=== PATIENT | female | born 2000 | race Caucasian/White ===

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

== ENCOUNTER 2018-09-25 17:46 | Emergency (ER) | payer BC ==
--- NOTE | 2018-09-25 18:02 | EDPHY ---
H & P Stated Complaint: slipped going downstairs Time Seen by Provider: 09/25/18 17:51 HPI/ROS: CHIEF COMPLAINT: Fell down stairs HISTORY OF PRESENT ILLNESS: Patient is a 17-year-old female who comes to the emergency department complaining of right upper back pain as well as right gluteal pain after falling down the stairs. She states that she was wearing shoes that are clumsy and tripped. She denies assault. She denies intoxication. She does have a history of lumbar stress fractures from dancing that were treated non operatively by wearing a brace 1 year ago. She denies having any lumbar pain currently. She did not hit her head. She denies neck pain or loss of consciousness. Severity: Moderate Modifying factors: None REVIEW OF SYSTEMS: Constitutional: denies: chills, fever, recent illness, recent injury EENTM: denies: blurred vision, double vision, nose congestion Respiratory: denies: cough, shortness of breath Cardiac: denies: chest pain, irregular heart rate, lightheadedness, palpitations Gastrointestinal/Abdominal: denies: abdominal pain, diarrhea, nausea, vomiting, blood streaked stools Genitourinary: denies: dysuria, frequency, hematuria, pain Musculoskeletal: See HPI Skin: denies: lesions, rash, jaundice, bruising Neurological: denies: headache, numbness, paresthesia, tingling, dizziness, weakness Hematologic/Lymphatic: denies: blood clots, easy bleeding, easy bruising Immunologic/allergic: denies: HIV/AIDS, transplant 10 systems reviewed and negative except as noted EXAM: GENERAL: Well-appearing, well-nourished and in no acute distress. HEAD: Atraumatic, normocephalic. EYES: Pupils equal round and reactive to light, extraocular movements intact, sclera anicteric, conjunctiva are normal. ENT: TMs normal, nares patent, oropharynx clear without exudates. Moist mucous membranes. NECK: Normal range of motion, supple without lymphadenopathy or JVD. LUNGS: Breath sounds clear to auscultation bilaterally and equal. No wheezes rales or rhonchi. HEART: Regular rate and rhythm without murmurs, rubs or gallops. ABDOMEN: Soft, nontender, normoactive bowel sounds. No guarding, no rebound. No masses appreciated. BACK: Abrasion to right scapular area, no crepitus or deformity. Pain with deep inspiration. Pain to right gluteus region. No abrasions or contusions. Ambulatory. No midline back pain. No step-off or deformity. EXTREMITIES: Normal range of motion, no pitting or edema. No clubbing or cyanosis. NEUROLOGICAL: Cranial nerves II through XII grossly intact. Normal speech, normal gait. 5/5 strength, normal movement in all extremities, normal sensation , normal reflexes PSYCH: Normal mood, normal affect. SKIN: Warm, dry, normal turgor, no visible rashes or lesions. Source: Patient, EMS - Personal History LMP (Females 10-55): 1-7 Days Ago Tetanus Vaccine Date: < 10 years - Medical/Surgical History Hx Asthma: No Hx Chronic Respiratory Disease: No Hx Diabetes: No Hx Cardiac Disease: No Hx Renal Disease: No Hx Cirrhosis: No Hx Alcoholism: No Hx HIV/AIDS: No Hx Splenectomy or Spleen Trauma: No Other PMH: Pancreatic stones, L3/L4 fx in 2014 - Family History Significant Family History: No pertinent family hx - Social History Smoking Status: Never smoked Alcohol Use: None Constitutional: Initial Vital Signs Temperature (C) 37.2 C 09/25/18 17:52 Heart Rate 87 09/25/18 17:52 Respiratory Rate 16 09/25/18 17:52 Blood Pressure 121/83 H 09/25/18 17:52 O2 Sat (%) 97 09/25/18 17:52 O2 Delivery Mode Room Air Allergies/Adverse Reactions: No Known Allergies Allergy (Unverified 11/09/17 13:29) Home Medications: Medication Instructions Recorded Digestive Enzymes 1 ea PO TIDMEAL 11/09/17 Ethinyl Estradiol/Drospirenone 1 each PO DAILY 11/09/17 [Gianvi 3 mg-0.02 mg Tablet] Acetaminophen [Tylenol 325mg (*)] 650 mg PO Q4HRS PRN tab 11/13/17 Lexapro 09/25/18 Medical Decision Making - Diagnostics Imaging: Discussed imaging studies w/ real estate services administrator Radiologist ED Course/Re-evaluation: Discussed x-ray results patient is reassured. Discussed treatment for rib contusions. Discussed expected course and indications for returning. She feels comfortable going home. Differential Diagnosis: Partial list of the Differential diagnosis considered include but were not limited to; contusion, abrasion, fall and although unlikely based on the history and physical exam, I also considered head injury, neck injury, intoxication, assault. I discussed these differential diagnoses and the plan with the patient as well as the usual and expected course. The patient understands that the diagnosis is provisional and that in medicine we are not always correct and that further workup is often warranted. Usual and customary warnings were given. All of the patient's questions were answered. The patient was instructed to return to the emergency department should the symptoms at all worsen or return, otherwise to followup with the physician as we discussed. Departure - Departure Disposition: Home, Routine, Self-Care Clinical Impression: Contusion, back Qualifiers: Encounter type: initial encounter Laterality: right Qualified Code(s): S20.221A - Contusion of right back wall of thorax, initial encounter Condition: Fair Instructions: Contusion in Adults (ED) Referrals: Patient,NotPresent [Unknown] - As per Instructions FRANCISCO Freedman,. [Clinic] - 2-3 days, if not improved
[2018-09-25 19:17] VITALS: BP 119/78
== END 2018-09-25 19:17 | disposition home or self-care (01) ==
LOC: EDUNIT#
DX: S20.221A Contusion of right back wall of thorax, initial encounter (principal); W10.8XXA Fall (on) (from) other stairs and steps, initial encounter; Z87.312 Personal history of (healed) stress fracture

== ENCOUNTER 2018-11-29 17:10 | Inpatient (IN) | payer BC ==
--- NOTE | 2018-11-29 17:19 | EDPHY ---
General Time Seen by Provider: 11/29/18 17:18 Narrative: CLINICAL IMPRESSION: Epigastric pain, acute pancreatitis ASSESSMENT/PLAN: Patient is a 18-year-old female with a significant history of anxiety and pancreatitis secondary to pancreatic stones presents to the Emergency Department with sudden-onset epigastric pain that occurred this morning at 7:30 a.m.. Patient is afebrile, she is not toxic appearing. Her abdomen is soft with tenderness to palpation in the epigastrium, mild guarding. Her vital signs were reviewed, no findings to suggest sepsis. Patient admitted last year , found to have obstructing pancreatic stones by MRI with MRCP. In light of multiple CTs at the age of 18 will proceed straight to MRI with MRCP. CBC revealed no evidence of leukocytosis. BMP and hepatic panel were grossly normal. Lipase 2000 consistent with acute pancreatitis. negative. MRI with MRCP revealed minimal edema next to the tail with mild narrowing, no evidence of stone. History and physical examination is consistent with acute pancreatitis. The patient was given IV fluids and pain control while in the emergency department, she remained NPO. Patient will be admitted to the hospitalist service for further observation and management, I spoke directly with Dr. Chan who will be the admitting physician. I also consulted Gastroenterology in spoke with Dr. Fitzgerald, he will see the patient in the morning, recommended supportive care at this time. Patient remained hemodynamically stable in the emergency department, her pain controlled. On repeat examination prior to transfer to the floor she is much more comfortable appearing, her abdomen was soft with mild tenderness to palpation in the epigastrium without evidence of a surgical abdomen. DIFFERENTIAL DX: Epigastric pain including but not limited to biliary colic, cholecystitis, peptic ulcer disease, pancreatitis, and gastroenteritis. ED COURSE: 1732: Patient's records reviewed, patient had a CT scan 1 year ago that showed no evidence of acute pancreatitis, no peripancreatic stranding or fluid collection. Findings were suggestive of chronic pancreatitis with numerous punctate coarse calcifications throughout the gland. During this admission the patient required MRI of the abdomen without contrast with MRCP, this revealed acute on chronic pancreatitis with at least 2 obstructing calculi and the pancreatic duct into the tail. 1735: Case discussed with Dr. Caraballo, in light of multiple CTs last of which was negative for acute findings. Dr Caraballo spoke with Dr. Rowley, will proceed with abdomen MRI without contrast with MRCP as this is where they were able to localize obstructing stones last year. 1811: Lipase 1999. Patient currently in MRI. 1823: Discussed case with Dr. Fitzgerald, he recommends supportive care at this time and he will see the patient tomorrow morning. 1852: Discussed case with Dr. Rowley- Minimal edema next to tail with mild narrowing, no evidence of stone. Findings suggestive of acute on chronic pancreatitis. CHIEF COMPLAINT: Epigastric pain HPI: Patient is a 18-year-old female with a history of pancreatitis secondary to pancreatic stones who presents to the Emergency Department with sudden-onset epigastric pain consistent with previous episodes of acute pancreatitis. Patient reports diagnosis of pancreatitis initially when she was in 6th grade, found to be secondary to pancreatic stones. She has had 5-6 episodes of acute pancreatitis several requiring admission to the hospital. She does report endoscopic removal of her pancreatic stones in the past. No history of gallbladder disease or gallstones. Patient reports last episode exactly 1 year ago, she was seen and evaluated here in this emergency department. Patient just returned from [place] today, she had a sudden onset of epigastric pain at 7: 30 a.m. This morning, she is from [place] and has hydrocodone in case of flares. She took a dose this morning with improvement of her symptoms however is starting to have increased pain this afternoon. Patient denies any nausea, vomiting or fevers. She has had no chest pain or shortness of breath. She denies any lower abdominal pain, pelvic pain, vaginal pain or vaginal bleeding. She denies any urinary symptoms to include dysuria, hematuria or increased frequency. She denies any diarrhea, bowel movements have been regular. Patient denies any abdominal surgeries. Last menstrual period was normal, 2 weeks prior. PMH: Pancreatitis secondary to pancreatic stones Pertinent Past Surgical History: Denies Family History: Not contributory Social History: Denies significant alcohol use or cigarette smoking REVIEW OF SYSTEMS: All other systems negative Constitutional: Decreased appetite. No fever, no chills. Eyes: No discharge, vision change ENT: No sore throat, congestion, ear pain. Cardiovascular: No chest pain, no palpitations. Respiratory: No cough, no shortness of breath. Gastrointestinal: Epigastric pain No vomiting, diarrhea. Genitourinary: No hematuria, dysuria, flank pain, pelvic pain. Musculoskeletal: No back pain, joint swelling, joint pain, myalgias. Skin: No rashes, color change. Neurological: No headache, dizziness, weakness. PHYSICAL EXAM: General Appearance: Patient is well-developed, she is uncomfortable appearing however not toxic-appearing. HENT: Normocephalic, atraumatic. Bilateral external ears are normal. Bilateral tympanic membranes are normal with pearly mays reflex. Nares are clear, mucosa is pink. Oropharynx is clear, mucosa is mildly dry, uvula is midline. There is no tonsillar enlargement or exudate. The dentition is normal. Eyes: PERRLA, EOMI intact. Conjunctiva pink, no pallor or injection Neck: Supple, nontender, no lymphadenopathy, no midline pain, FROM, no meningismus. Respiratory: There are no retractions, lungs are clear to auscultation. Cardiac: Regular rate and rhythm, no murmurs or gallops. Gastrointestinal: Abdomen is soft, bowel sounds normal, no masses/hernia. Patient with tenderness to palpation in her epigastrium with mild voluntary guarding, no rigidity. No lower abdominal tenderness to palpation, negative Rovsing's. Neurological: Alert and oriented x 3, CN 2-12 grossly intact, normal gait no ataxia, DTR's intact, normal sensation and strength Skin: Warm, dry, no rashes, no nodules on palpation. Musculoskeletal: Extremities are symmetrical, full range of motion, no tenderness, deformity, swelling, or erythema. Psychiatric: Patient is oriented X 3, there is no agitation. MEDICAL DECISION MAKING: Patient was seen independently. Secondary supervising physician at time of evaluation was Dr. Caraballo, he did not evaluate this patient. Diagnosis: Epigastric pain, acute pancreatitis. New, requires workup Summary: See Assessment and Plan for summary of ED visit Clinical lab tests: ordered / reviewed. Independent visualization of images, tracing, or specimens: Yes. Decision to obtain medical records or history from someone other than the patient: No Review / Summarize previous medical records: Yes Discussed patient with another provider: Yes, Dr. Caraballo Patient Progress: Stable, admit. - History Smoking Status: Never smoked - Objective Vital Signs: Initial Vital Signs Temperature (C) 36.5 C 11/29/18 17:14 Heart Rate 77 11/29/18 17:14 Respiratory Rate 16 11/29/18 17:14 Blood Pressure 115/76 11/29/18 17:14 O2 Sat (%) 100 11/29/18 17:14 O2 Delivery Mode Room Air Allergies/Adverse Reactions: No Known Allergies Allergy (Verified 11/29/18 18:59) Home Medications: Medication Instructions Recorded Escitalopram Oxalate [Lexapro] 15 mg PO DAILY 11/29/18 Ethinyl Estradiol/Drospirenone 1 tab PO DAILY 11/29/18 [[place] 3 mg-0.02 mg Tablet] Fluticasone Nasal [Flonase Nasal 1 sprays NASAL DAILY 11/29/18 [place] (RX)] Hydrocodone/APAP 5/325 [[place] 1 - 2 tab PO Q6H PRN 11/29/18 5/325 (*)] Polymyxin B Sulf/Trimethoprim 2 drop EACHEYE TID 11/29/18 [Polymyxin B-Tmp Eye Drops] Laboratory Results: Laboratory Results 11/29/18 17:45 11/29/18 17:45 11/29/18 11/29/18 11/29/18 17:45 17:45 17:45 WBC 8.49 10^3/uL 10^3/uL (3.80-9.50) RBC 4.38 10^6/uL 10^6/uL (4.18-5.33) Hgb 12.7 g/dL g/dL (12.6-16.3) Hct 37.6 % L % (38.0-47.0) MCV 85.8 fL fL (81.5-99.8) MCH 29.0 pg pg (27.9-34.1) MCHC 33.8 g/dL g/dL (32.4-36.7) RDW 12.5 % % (11.5-15.2) Plt Count 215 10^3/uL 10^3/uL (150-400) MPV 10.0 fL fL (8.7-11.7) Neut % (Auto) 64.9 % % (39.3-74.2) Lymph % (Auto) 25.6 % % (15.0-45.0) [place] % (Auto) 8.2 % % (4.5-13.0) Eos % (Auto) 0.9 % % (0.6-7.6) Baso % (Auto) 0.2 % L % (0.3-1.7) Nucleat RBC Rel Count 0.0 % % (0.0-0.2) Absolute Neuts (auto) 5.50 10^3/uL 10^3/uL (1.70-6.50) Absolute Lymphs (auto) 2.17 10^3/uL 10^3/uL (1.00-3.00) Absolute Monos (auto) 0.70 10^3/uL 10^3/uL (0.30-0.80) Absolute Eos (auto) 0.08 10^3/uL 10^3/uL (0.03-0.40) Absolute Basos (auto) 0.02 10^3/uL 10^3/uL (0.02-0.10) Absolute Nucleated RBC 0.00 10^3/uL 10^3/uL (0-0.01) Immature Gran % 0.2 % % (0.0-1.1) Immature Gran # 0.02 10^3/uL 10^3/uL (0.00-0.10) Sodium 133 mEq/L L mEq/L (135-145) Potassium 3.9 mEq/L mEq/L (3.5-5.2) Chloride 101 mEq/L mEq/L (97-110) Carbon Dioxide 23 mEq/l mEq/l (22-31) Anion Gap 9 mEq/L mEq/L (6-14) BUN 14 mg/dL mg/dL (7-23) Creatinine 0.7 mg/dL mg/dL (0.6-1.0) Estimated GFR > 60 Glucose 89 mg/dL mg/dL (70-100) Calcium 9.3 mg/dL mg/dL (8.5-10.4) Total Bilirubin 0.4 mg/dL mg/dL (0.1-1.4) Conjugated Bilirubin 0.4 mg/dL mg/dL (0.0-0.5) Unconjugated Bilirubin 0.0 mg/dL mg/dL (0.0-1.1) AST 22 IU/L IU/L (14-46) ALT 26 IU/L IU/L (9-52) Alkaline Phosphatase 74 IU/L IU/L (38-126) Total Protein 6.7 g/dL g/dL (6.3-8.2) Albumin 3.7 g/dL g/dL (3.5-5.0) Lipase 1965 IU/L H IU/L (23-300) Beta HCG, Qual NEGATIVE Medications Given: Discontinued Medications Hydromorphone HCl (Dilaudid) 0.5 mg IVP EDNOW ONE Stop: 11/29/18 17:28 Last Admin: 11/29/18 17:48 Dose: 0.5 mg Hydromorphone HCl (Dilaudid) 0.5 mg IVP EDNOW ONE Stop: 11/29/18 18:39 Last Admin: 11/29/18 18:57 Dose: 0.5 mg Sodium Chloride (Ns) 1,000 mls @ 0 mls/hr IV ONCE ONE PRN Reason: Wide Open Stop: 11/29/18 17:28 Last Admin: 11/29/18 17:47 Dose: 1,000 mls Departure - Departure Disposition: [facility] Inpatient Acute Clinical Impression: Acute pancreatitis Qualifiers: Pancreatitis type: other Acute pancreatitis complication: unspecified Qualified Code(s): K85.80 - Other acute pancreatitis without necrosis or infection
[2018-11-29] MEDS ORDERED: NS 1,000 ML IV ONE (17:27)
[2018-11-29] MEDS: HYDROmorphONE/DILAUDID 2 MG/ML INJ IVP ONE ×2 (17:48→22:06)
[2018-11-29 17:55] LABS: PLATELET COUNT 215 10^3/uL (150-400)
[2018-11-29] MEDS ORDERED: HYDROmorphONE/DILAUDID 2 MG/ML INJ IVP ONE (18:38)
[2018-11-29] MEDS ORDERED: ONDANSETRON 4 MG/2 ML VIAL IVP PRN (18:58)
[2018-11-29] MEDS ORDERED: ACETAMINOPHEN 325 MG TAB PO PRN (18:58)
[2018-11-29] MEDS ORDERED: oxyCODONE IR 5 MG TAB PO PRN (18:58)
[2018-11-29] MEDS ORDERED: NS 1,000 ML IV SCH (19:00)
--- NOTE | 2018-11-29 19:08 | PDGENHP ---
History and Physical - Chief Complaint Abdominal pain - History of Present Illness Killian Ordonez is a 18-year-old female with past medical history of multiple episodes of pancreatitis along with depression and a recent pink eye infection who presented the emergency room with acute onset of abdominal pain. She said she was in [place] for the last 5 days and during that time was drinking he fairly heavy amounts of alcohol. She was fine until today when she had acute onset of abdominal pain. She has not had any nausea or vomiting. She has not had any diarrhea or bloody stools. She denies any dysuria or hematuria. The pain is sharp pain lobe located in her mid epigastric area radiating to her back. Pain is very similar previous episodes of pancreatitis that she has had. She has an extensive history of pancreatitis with a stent placed at age 2 and then again a few years later. She was admitted here in October of 2017 for another episode of pancreatitis at which time an MRCP did show some stones. However the recommendation was that she be discharged and follow up for an ERCP after the pancreas and had an opportunity to calm down. She then states she had another episode of pancreatitis sometime after that while in [place]. She denied any other chest pain, cough or other symptoms. History Information - Allergies/Home Medication List Allergies/Adverse Reactions: No Known Allergies Allergy (Verified 11/29/18 18:59) Home Medications: Escitalopram Oxalate [Lexapro] 15 mg PO DAILY 11/29/18 [Last Taken 11/29/18 09: 00] Ethinyl Estradiol/Drospirenone [Loryna 3 mg-0.02 mg Tablet] 1 tab PO DAILY 11/29 [Last Taken 11/29/18 09:00] Fluticasone Nasal [Flonase Nasal [place] (RX)] 1 sprays NASAL DAILY 11/29/18 [ Last Taken 11/29/18 09:00] Hydrocodone/APAP 5/325 [[place] 5/325 (*)] 1 - 2 tab PO Q6H PRN 11/29/18 [Last Taken 11/29/18 09:00] Polymyxin B Sulf/Trimethoprim [Polymyxin B-Tmp Eye Drops] 2 drop EACHEYE TID [Last Taken 11/29/18 09:00] I have personally reviewed and updated: family history, medical history, social history, surgical history - Past Medical History Additional medical history: Pancreatitis, depression, pink eye - Surgical History Reports: no pertinent surgical hx - Family History Positive for: non-pertinent - Social History Smoking Status: Never smoked Alcohol Use: Other (Drink fairly heavily over the last week but usually is an occasional drinker.) Review of Systems Review of Systems: ROS: 10pt was reviewed & negative except for what was stated in HPI & below Physical Exam Physical Exam: Temp Pulse Resp BP Pulse Ox 36.5 C 77 16 115/76 100 11/29/18 17:14 11/29/18 17:14 11/29/18 17:14 11/29/18 17:14 11/29/18 17:14 Constitutional: no apparent distress, appears nourished, not in pain Eyes: PERRL, anicteric sclera, EOMI Ears, Nose, Mouth, Throat: moist mucous membranes, hearing normal, ears appear normal, no oral mucosal ulcers Cardiovascular: regular rate and rhythym, no murmur, rub, or gallop, No edema Respiratory: no respiratory distress, no rales or rhonchi, clear to auscultation Gastrointestinal: normoactive bowel sounds, tenderness Genitourinary: no bladder fullness, no bladder tenderness Skin: warm, normal color, no rashes or abrasions, no fluctuance, no induration, No mottled Musculoskeletal: full muscle strength, no muscle tenderness, normal joint ROM, no joint effusions Psychiatric: interacting appropriately, not anxious, not encephalopathic, thought process linear Lymph, Heme, Immunologic: no cervical LAD, no supraclavicular LAD Lab Data & Imaging Review 11/29/18 17:45 11/29/18 17:45 WBC 8.49 10^3/uL (3.80-9.50) 11/29/18 17:45 RBC 4.38 10^6/uL (4.18-5.33) 11/29/18 17:45 Hgb 12.7 g/dL (12.6-16.3) 11/29/18 17:45 Hct 37.6 % (38.0-47.0) L 11/29/18 17:45 MCV 85.8 fL (81.5-99.8) 11/29/18 17:45 MCH 29.0 pg (27.9-34.1) 11/29/18 17:45 MCHC 33.8 g/dL (32.4-36.7) 11/29/18 17:45 RDW 12.5 % (11.5-15.2) 11/29/18 17:45 Plt Count 215 10^3/uL (150-400) 11/29/18 17:45 MPV 10.0 fL (8.7-11.7) 11/29/18 17:45 Neut % (Auto) 64.9 % (39.3-74.2) 11/29/18 17:45 Lymph % (Auto) 25.6 % (15.0-45.0) 11/29/18 17:45 Harper % (Auto) 8.2 % (4.5-13.0) 11/29/18 17:45 Eos % (Auto) 0.9 % (0.6-7.6) 11/29/18 17:45 Baso % (Auto) 0.2 % (0.3-1.7) L 11/29/18 17:45 Nucleat RBC Rel Count 0.0 % (0.0-0.2) 11/29/18 17:45 Absolute Neuts (auto) 5.50 10^3/uL (1.70-6.50) 11/29/18 17:45 Absolute Lymphs (auto) 2.17 10^3/uL (1.00-3.00) 11/29/18 17:45 Absolute Monos (auto) 0.70 10^3/uL (0.30-0.80) 11/29/18 17:45 Absolute Eos (auto) 0.08 10^3/uL (0.03-0.40) 11/29/18 17:45 Absolute Basos (auto) 0.02 10^3/uL (0.02-0.10) 11/29/18 17:45 Absolute Nucleated RBC 0.00 10^3/uL (0-0.01) 11/29/18 17:45 Immature Gran % 0.2 % (0.0-1.1) 11/29/18 17:45 Immature Gran # 0.02 10^3/uL (0.00-0.10) 11/29/18 17:45 Sodium 133 mEq/L (135-145) L 11/29/18 17:45 Potassium 3.9 mEq/L (3.5-5.2) 11/29/18 17:45 Chloride 101 mEq/L (97-110) 11/29/18 17:45 Carbon Dioxide 23 mEq/l (22-31) 11/29/18 17:45 Anion Gap 9 mEq/L (6-14) 11/29/18 17:45 BUN 14 mg/dL (7-23) 11/29/18 17:45 Creatinine 0.7 mg/dL (0.6-1.0) 11/29/18 17:45 Estimated GFR > 60 11/29/18 17:45 Glucose 89 mg/dL (70-100) 11/29/18 17:45 Calcium 9.3 mg/dL (8.5-10.4) 11/29/18 17:45 Total Bilirubin 0.4 mg/dL (0.1-1.4) 11/29/18 17:45 Conjugated Bilirubin 0.4 mg/dL (0.0-0.5) 11/29/18 17:45 Unconjugated Bilirubin 0.0 mg/dL (0.0-1.1) 11/29/18 17:45 AST 22 IU/L (14-46) 11/29/18 17:45 ALT 26 IU/L (9-52) 11/29/18 17:45 Alkaline Phosphatase 74 IU/L (38-126) 11/29/18 17:45 Total Protein 6.7 g/dL (6.3-8.2) 11/29/18 17:45 Albumin 3.7 g/dL (3.5-5.0) 11/29/18 17:45 Lipase 1965 IU/L (23-300) H 11/29/18 17:45 Beta HCG, Qual NEGATIVE 11/29/18 17:45 Assessment & Plan Assessment: 18-year-old female with past medical history of multiple episodes of acute pancreatitis admitted with acute pancreatitis. Acute pancreatitis (Acute)-lipase elevated to a most 2000. She has tenderness in her epigastrium consistent with pancreatitis and has had multiple episodes of acute pancreatitis since childhood. This particular episode may have been precipitated by alcohol consumption given her history of heavy alcohol drinking in [place]. I discussed the case with the emergency room physician and we have decided to proceed with MRCP. -aggressive fluid resuscitation with LR -pain control -Dr. Fitzgerald who saw the patient on her last admission here has been consulted -MRCP Hyponatremia- likely due to poor oral intake. Will repeat in the morning [place] [facility]- on ophthalmic antibiotic drops. Continue Depression- restart antidepressive medications as able to take p.o. Prophylaxis-SCDs, hold heparin in case of ERCP Fluids-LR at 150 cc an hour Electrolytes-within normal limits Nutrition-clears Cor-full Dispo-inpatient for acute pancreatitis
[2018-11-29] MEDS: LR 1,000 ML IV SCH (20:22)
[2018-11-29] MEDS ORDERED: HYDROCODONE/APAP 5/325 TAB PO PRN (21:29)
[2018-11-29] MEDS ORDERED: ESCITALOPRAM OXALATE 10 MG TAB PO SCH (21:30)
[2018-11-29] MEDS ORDERED: POLYMYXIN B SULFATE/TMP 10 ML OPHT.BTL EACHEYE SCH (22:00)
[2018-11-29] MEDS: ESCITALOPRAM OXALATE 10 MG TAB PO SCH (23:20)
[2018-11-30] MEDS: HYDROmorphONE/DILAUDID 1 MG/ML INJ IVP PRN ×3 (00:26→08:56)
[2018-11-30] MEDS: LR 1,000 ML IV SCH ×3 (03:12→17:20)
[2018-11-30] MEDS: LORazepam 2 MG/ML INJ IVP PRN ×2 (03:16→10:52)
[2018-11-30 05:11] LABS: PLATELET COUNT 165 10^3/uL (150-400)
[2018-11-30] MEDS ORDERED: NALOXONE HCL 0.4 MG/ML INJ IVP PRN (12:11)
[2018-11-30] MEDS: HYDROmorphONE/DILAUDID 6 MG/30 ML PCA IV PRN ×2 (12:45→22:49)
--- NOTE | 2018-11-30 13:26 | HOSPPROG ---
Hospitalist Progress Note Assessment/Plan: 18-year-old female admitted with recurrent pancreatitis. Acute on chronic pancreatitis - lipase 2K-->800. She has had multiple episodes of pancreatitis since childhood. Trigger this episode may have been etoh. MRCP shows changes c/w acute on chronic pancreatits, no obvious stone. She has ongoing pain, not adequately controlled by q3h dilaudid. 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 has had clear liquid diet ordered, but hasn' t taken any po due to pain. No N/V. No diarrhea. No fevers. Objective: Vital Signs Temp Pulse Resp BP Pulse Ox 37.1 C 89 14 110/65 94 11/30/18 12:00 11/30/18 12:00 11/30/18 12:00 11/30/18 12:00 11/30/18 12:00 Laboratory Results 11/30/18 04:54 11/30/18 04:54 11/29/18 11/30/18 12/01/18 05:59 05:59 05:59 Intake Total 1000 Balance 1000 - Physical Exam Constitutional: no apparent distress Eyes: PERRL Ears, Nose, Mouth, Throat: moist mucous membranes Cardiovascular: regular rate and rhythym Respiratory: no respiratory distress, clear to auscultation Gastrointestinal: normoactive bowel sounds, other (soft, nd, +epigastric TTP with voluntary guarding, no rigidity or peritoneal signs, +BS) Skin: warm Musculoskeletal: full muscle strength Neurologic: AAOx3 Psychiatric: interacting appropriately ICD10 Worksheet Patient Problems: Problems Problem Status Onset Acute pancreatitis Acute Contusion, back Acute Pancreatitis Acute
[2018-11-30] MEDS: ENOXAPARIN 40 MG/0.4 ML SYR SC SCH (13:42)
[2018-11-30] MEDS: POLYMYXIN B SULFATE/TMP 10 ML OPHT.BTL EACHEYE SCH ×2 (15:26→20:10)
--- NOTE | 2018-11-30 15:27 | ASMTCMCOM ---
CM Note CM Note Notes: Spoke with pt in the room. Pt admitted for ETOH induced pancreatitis. Pt reports she was in [place] and did not drink enough water while drinking alcohol and consuming a lot of fatty foods. Pt states she does not drink a lot but when she does drink more than usual she gets pancreatitis. CM spoke with pt about what is considered reasonable intake of ETOH per CAGE screen. Pt denies need for emotional support resources around ETOH intake stating that her body is communicating very clearly with her through the pancreatic pain. Pt states mother is on her way to [place] and will be supportive until pt is able to care for herself independently. No CM needs noted at this time. D/C Plan: Independent with support from Mom. Date Signed: 11/30/2018 03:26 PM Electronically Signed By:Idalmis Alvarez
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
--- NOTE | 2018-11-30 18:30 | PDMN ---
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 NPO, gi consult pend.
[2018-11-30] MEDS: FLUTICASONE NASAL 120 SPRAYS/16 GM MDI NS SCH (18:36)
[2018-11-30] MEDS: ESCITALOPRAM OXALATE 10 MG TAB PO SCH (20:09)
[2018-12-01] MEDS: LR 1,000 ML IV SCH ×4 (00:20→19:01)
[2018-12-01] MEDS: HYDROmorphONE/DILAUDID 6 MG/30 ML PCA IV PRN ×3 (05:06→23:06)
--- NOTE | 2018-12-01 09:10 | SOAPPROG ---
SOAP Progress Note Assessment/Plan: Assessment: Chronic on acute pancreatitis. Most likely exacerbated by recent ETOH and dehydration. No endoscopic interventions required. Still with pain this morning. Improved somewhat. Plan: 1. IV fluids 2. Analgesia 3. NPO until pain improved 4. When pain improved start on clear liquids and advance as tolerated 5. After discharge would recommend she follow up with her regular GI in [place]. She can follow up with us as an outpatient as needed. Will sign off. Please call with further questions. 12/01/18 09:06 Subjective: CC: Pancreatitis Still with pain this morning. Objective: Vital Signs Temp Pulse Resp BP Pulse Ox 37.2 C 77 12 99/49 L 97 12/01/18 08:00 12/01/18 08:00 12/01/18 08:00 12/01/18 08:00 12/01/18 08:00 Generic Name Dose Route Start Last Admin Trade Name Freq PRN Reason Stop Dose Admin Acetaminophen 650 mg 11/29/18 18:58 Tylenol PO 05/28/19 18:57 Q4HRS PRN Pain, Mild/Fever, Can Take PO Enoxaparin Sodium 40 mg 11/30/18 13:45 11/30/18 13:42 Lovenox SC 05/29/19 13:44 40 mg DAILY MACIE Administration Escitalopram Oxalate 15 mg 11/29/18 23:15 11/30/18 20:09 Lexapro PO 05/28/19 23:14 15 mg HS MACIE Administration Fluticasone Propionate 1 sprays 11/30/18 18:15 11/30/18 18:36 Flonase Nasal [place] NS 05/29/19 18:14 1 spray DAILY MACIE Administration Hydromorphone HCl 0 mg 11/30/18 12:11 12/01/18 05:06 Dilaudid Sports Team Manager IV 12/10/18 12:10 6 mg PRN PRN Administration Pain, Severe Unable to Take PO Protocol Lactated Ringer's 1,000 mls @ 150 mls/hr 11/29/18 19:30 12/01/18 06:56 Lr IV 05/28/19 19:29 1,000 mls CONT MACIE Administration Lorazepam 0.5 - 1 mg 11/29/18 23:32 11/30/18 10:52 Ativan Injection IVP 05/28/19 23:31 0.5 mg Q6HRS PRN Administration Spasms Miscellaneous Medication 1 tab 11/30/18 13:30 11/30/18 14:44 Ethinyl Estradiol/Drospirenone [Loryna 3 Mg-0.02 Mg Tablet] PO 05/29/19 13: 29 1 tab DAILY MACIE Administration Naloxone HCl 0 mg 11/30/18 12:11 Narcan IVP 05/29/19 12:10 PRN PRN Respiratory depression Protocol Ondansetron HCl 4 mg 11/29/18 18:58 Zofran IVP 05/28/19 18:57 Q4HRS PRN Nausea/Vomiting, Can't Take PO Ondansetron HCl 4 mg 11/29/18 18:58 Zofran Odt PO 05/28/19 18:57 Q4HRS PRN Nausea/Vomiting, Use 1st Discontinued Medications Generic Name Dose Route Start Last Admin Trade Name Freq PRN Reason Stop Dose Admin Hydrocodone Bitart/Acetaminophen 2 tab 11/29/18 21:29 [place] 5/325 PO 12/09/18 21:28 Q4HRS PRN Pain, Moderate Able to Take PO Escitalopram Oxalate 15 mg 11/29/18 21:30 11/29/18 23:24 Lexapro PO 05/28/19 21:29 Not Given DAILY MACIE Hydromorphone HCl 0.5 mg 11/29/18 17:27 11/29/18 22:06 Dilaudid IVP 11/29/18 17:28 Not Given EDNOW ONE Hydromorphone HCl 0.5 mg 11/29/18 18:38 11/29/18 18:57 Dilaudid IVP 11/29/18 18:39 0.5 mg EDNOW ONE Administration Hydromorphone HCl 0.2 - 0.4 mg 11/29/18 23:31 11/30/18 08:56 Dilaudid IVP 12/09/18 23:30 0.4 mg Q3HRS PRN Administration Pain, Severe Sodium Chloride 1,000 mls @ 0 mls/hr 11/29/18 17:27 11/29/18 17:47 Ns IV 11/29/18 17:28 1,000 mls ONCE ONE Administration Wide Open Sodium Chloride 1,000 mls @ 150 mls/hr 11/29/18 19:00 Ns IV 05/28/19 18:59 CONT MACIE Morphine Sulfate 2 - 4 mg 11/29/18 18:58 11/29/18 23:03 Morphine IVP 12/09/18 18:57 2 mg Q2H PRN Administration Pain, Severe Unable to Take PO Oxycodone HCl 5 - 10 mg 11/29/18 18:58 Oxycodone Ir PO 12/09/18 18:57 Q3HRS PRN Pain, Severe Able to Take PO Polymyxin/Trimethoprim Sulfate 2 drops 11/29/18 22:00 11/29/18 23:07 Polytrim Opht Drops EACHEYE 11/29/18 22:01 Not Given TID MACIE Polymyxin/Trimethoprim Sulfate 2 drops 11/30/18 16:00 11/30/18 20:10 Polytrim Opht Drops EACHEYE 11/30/18 22:01 2 drops TID MACIE Administration Physical Exam - Physical Exam General Appearance: alert, no apparent distress Respiratory: lungs clear, normal breath sounds Cardiac/Chest: regular rate, rhythm Abdomen: soft, other (slight tenderness on palpation) Skin: normal color, warm/dry Neuro/Psych: no motor/sensory deficits, alert, normal mood/affect, oriented x 3 ICD10 Worksheet Patient Problems: Problems Problem Status Onset Acute pancreatitis Acute Contusion, back Acute Pancreatitis Acute
[2018-12-01] MEDS: FLUTICASONE NASAL 120 SPRAYS/16 GM MDI NS SCH (10:31)
[2018-12-01] MEDS: ENOXAPARIN 40 MG/0.4 ML SYR SC SCH (10:31)
--- NOTE | 2018-12-01 14:06 | HOSPPROG ---
Hospitalist Progress Note Assessment/Plan: 18-year-old female admitted with recurrent pancreatitis. First encounter, chart reviewed. 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 No other issues. Objective: Vital Signs Temp Pulse Resp BP Pulse Ox 37.2 C 78 12 99/50 L 91 L 12/01/18 11:53 12/01/18 11:53 12/01/18 11:53 12/01/18 11:53 12/01/18 11:53 - Physical Exam Constitutional: appears nourished, uncomfortable, No obese Eyes: PERRL, anicteric sclera, EOMI Ears, Nose, Mouth, Throat: moist mucous membranes, hearing normal, ears appear normal Cardiovascular: regular rate and rhythym, No JVD, No edema Respiratory: no respiratory distress, no rales or rhonchi, reduced air movement Gastrointestinal: normoactive bowel sounds, tenderness, No ascites Skin: warm, normal color, No mottled Musculoskeletal: normal joint ROM, no joint effusions, generalized weakness Neurologic: AAOx3 Psychiatric: interacting appropriately, not anxious, not encephalopathic, thought process linear ICD10 Worksheet Patient Problems: Problems Problem Status Onset Pancreatitis Acute Contusion, back Acute Acute pancreatitis Acute
[2018-12-01] MEDS: ESCITALOPRAM OXALATE 10 MG TAB PO SCH (20:26)
[2018-12-01] MEDS: ONDANSETRON DISINTEGRATING 4 MG TAB PO PRN (20:27)
[2018-12-02] MEDS: LR 1,000 ML IV SCH ×4 (01:29→21:50)
[2018-12-02] MEDS: HYDROmorphONE/DILAUDID 6 MG/30 ML PCA IV PRN ×2 (07:57→18:03)
[2018-12-02] MEDS: ENOXAPARIN 40 MG/0.4 ML SYR SC SCH (09:53)
[2018-12-02] MEDS: FLUTICASONE NASAL 120 SPRAYS/16 GM MDI NS SCH (09:54)
--- NOTE | 2018-12-02 11:20 | HOSPPROG ---
Hospitalist Progress Note Assessment/Plan: 18-year-old female admitted with recurrent pancreatitis. #Acute on chronic pancreatitis - lipase 2K-->130 -better today -She has had multiple episodes of pancreatitis since childhood -trigger this episode may have been etoh -MRCP shows changes c/w acute on chronic pancreatits, no obvious stone -She has ongoing pain -cont IVF's, advacne to clears -dilaudid HEAD OF MATHEMATICS for pain control -appreciate GI consult, D/W Dr Fitzgerald #Hyponatremia -resolved with IVF's #[place] eye -improved #Depression - cont home meds #DVT PPLX - Lovenox Cor-full Dispo-inpatient for acute pancreatitis cont advance to clears likely DC tomorrow Subjective: No more pain. Not better yet. No other issues. Objective: Vital Signs Temp Pulse Resp BP Pulse Ox 36.9 C 73 16 91/45 L 97 12/02/18 08:00 12/02/18 08:00 12/02/18 08:00 12/02/18 08:00 12/02/18 08:00 12/01/18 12/02/18 12/03/18 05:59 05:59 05:59 Intake Total 5 2019 Balance 1672019 - Physical Exam Constitutional: no apparent distress, appears nourished Eyes: PERRL, anicteric sclera Ears, Nose, Mouth, Throat: moist mucous membranes, hearing normal Cardiovascular: No JVD, No edema Respiratory: no respiratory distress, reduced air movement Gastrointestinal: tenderness, No ascites Skin: warm, normal color Musculoskeletal: no joint effusions, generalized weakness Neurologic: AAOx3 Psychiatric: interacting appropriately, not anxious, not encephalopathic ICD10 Worksheet Patient Problems: Problems Problem Status Onset Pancreatitis Acute Contusion, back Acute Acute pancreatitis Acute
[2018-12-02] MEDS: ESCITALOPRAM OXALATE 10 MG TAB PO SCH (21:01)
[2018-12-03] MEDS: ONDANSETRON DISINTEGRATING 4 MG TAB PO PRN (02:57)
[2018-12-03] MEDS: LR 1,000 ML IV SCH ×2 (04:16→10:02)
[2018-12-03] MEDS: ENOXAPARIN 40 MG/0.4 ML SYR SC SCH (09:57)
[2018-12-03] MEDS: FLUTICASONE NASAL 120 SPRAYS/16 GM MDI NS SCH (09:57)
[2018-12-03] MEDS: HYDROmorphONE/DILAUDID 6 MG/30 ML PCA IV PRN (10:38)
--- NOTE | 2018-12-03 13:14 | HOSPPROG ---
Hospitalist Progress Note Assessment/Plan: 18-year-old female admitted with recurrent pancreatitis. First encounter, chart reviewed. #Acute on chronic pancreatitis -lipase is much improved -she has had multiple episodes of pancreatitis since childhood, lives in the [place], [place] area and has a GI specialist there -alcohol may have caused the above -MRCP shows acute on chronic pancreatitis -had a pain episode last night and she is fearful about stopping the Dilaudid MEDICAL COST CONSULTANT #alcohol use -encouraged her to abstain from all alcohol with her hx of pancreatitis #Hyponatremia -resolved with IVF's #[place] eye -resolved #hypotension -asymptomatic #Depression - cont home meds #plan: cut back a bit on IV fluids, cont MEDICAL COST CONSULTANT through today. Told her to not eat even clears if pain occurs after eating. Patient's mom, Hramony, at the bedside. Subjective: Navid said pain was so severe during the night, epigastric area and wrapped around. Earlier today, pain was around 5. With use of MEDICAL COST CONSULTANT, pain is very well managed. Objective: Vital Signs Temp Pulse Resp BP Pulse Ox 37.2 C 63 12 96/60 L 97 12/03/18 12:07 12/03/18 12:07 12/03/18 12:07 12/03/18 12:07 12/03/18 12:07 12/02/18 12/03/18 12/04/18 05:59 05:59 05:59 Intake Total 1675 3762 Balance 1675 3762 - Physical Exam Constitutional: uncomfortable Eyes: PERRL Ears, Nose, Mouth, Throat: hearing normal Cardiovascular: regular rate and rhythym Respiratory: no respiratory distress Gastrointestinal: normoactive bowel sounds, tenderness (slight in epigastric area w palp) Skin: warm Musculoskeletal: full muscle strength Neurologic: AAOx3 Psychiatric: interacting appropriately ICD10 Worksheet Patient Problems: Problems Problem Status Onset Acute pancreatitis Acute Contusion, back Acute Pancreatitis Acute
--- NOTE | 2018-12-03 15:56 | ASMTCMCOM ---
CM Note CM Note Notes: Reviewed chart, pt admitted with etoh induced pancreatitis. She is not interested in etoh resources, will dc home with support of mother when medically stable. CM available to provide any assistance should pt change her mind. DC Plan: Independent Date Signed: 12/03/2018 03:55 PM Electronically Signed By:Shari Moe RN
[2018-12-03] MEDS: ESCITALOPRAM OXALATE 10 MG TAB PO SCH (20:08)
[2018-12-04] MEDS: ONDANSETRON DISINTEGRATING 4 MG TAB PO PRN (04:41)
[2018-12-04] MEDS: LR 1,000 ML IV SCH (04:42)
[2018-12-04] MEDS: ENOXAPARIN 40 MG/0.4 ML SYR SC SCH (10:19)
[2018-12-04] MEDS: FLUTICASONE NASAL 120 SPRAYS/16 GM MDI NS SCH (10:19)
[2018-12-04] MEDS ORDERED: HYDROCODONE/APAP 5/325 TAB PO PRN (11:39)
[2018-12-04] MEDS ORDERED: HYDROmorphONE/DILAUDID 1 MG/ML INJ IVP PRN (11:39)
--- NOTE | 2018-12-04 11:42 | HOSPPROG ---
Hospitalist Progress Note Assessment/Plan: 18-year-old female admitted with recurrent pancreatitis. #Acute on chronic pancreatitis -lipase is much improved -she has had multiple episodes of pancreatitis since childhood, lives in the [place], [place] area and has a GI specialist there -alcohol may have caused the above -MRCP shows acute on chronic pancreatitis -overall better today #alcohol use -encouraged her to abstain from all alcohol with her hx of pancreatitis #Hyponatremia -mild #[place] eye -resolved #hypotension -asymptomatic #Depression - cont home meds #plan: dc fluids and [employer], trial of LIU, will recheck on her later today. Subjective: Navid is feeling better today, is fearful about having a pain crisis again. Objective: Vital Signs Temp Pulse Resp BP Pulse Ox 37.2 C 61 12 105/69 95 12/04/18 08:00 12/04/18 08:00 12/04/18 08:00 12/04/18 08:00 12/04/18 08:00 Laboratory Results 12/04/18 05:46 12/04/18 05:46 12/03/18 12/04/18 12/05/18 05:59 05:59 05:59 Intake Total 3762 Balance 3762 - Physical Exam Constitutional: no apparent distress, appears nourished, not in pain Eyes: PERRL Ears, Nose, Mouth, Throat: hearing normal Cardiovascular: regular rate and rhythym Respiratory: no respiratory distress Gastrointestinal: normoactive bowel sounds, soft, non-tender abdomen (no tenderness during my exam, but had some epigastric pain last night) Skin: warm Musculoskeletal: full muscle strength Neurologic: AAOx3 Psychiatric: interacting appropriately ICD10 Worksheet Patient Problems: Problems Problem Status Onset Acute pancreatitis Acute Contusion, back Acute Pancreatitis Acute
[2018-12-04 16:31] VITALS: BP 100/62
--- NOTE | 2018-12-04 17:03 | PDDCSUM ---
Discharge Summary Discharge Summary: #Acute on chronic pancreatitis Symptoms have resolved. She was recently in [place] drinking. Recommendation is to stain from all alcohol. An MRCP was performed which shows acute on chronic pancreatitis. On discharge she is eating and drinking well. Has not required any pain medications throughout the day #alcohol use Encouraged patient to abstain from all alcohol. #Hyponatremia This is very mild. Will resolve with eating and drinking. #[place] eye Resolved. #hypotension Asymptomatic. #Depression This has been stable during her stay. Briefly, Navid Ordonez is a 18-year-old female who has a history of pancreatitis. She is followed by Gastroenterology us in the [facility] area. She presented the emergency room with abdominal pain and was treated with supportive care. Discharge condition is stable. Blood pressure is 100/62, heart rate is 64, respiratory rate is 14, O2 sats on room air are 95%, temperature is 37 degree C Medications at discharge. To resume her home medications. Discharge plan. 1. Abstain from all alcohol 2. To take copies of her CT scan to follow up with her primary communication coordinator. 3. If she develops chest pain, shortness of breath, worsening abdominal pain; return to the emergency room.
== END 2018-12-04 17:19 | disposition home or self-care (01) | DRG 439 ==
LOC: F3E 20:16 → OBSVTOIN 11-30 18:08
PROVIDERS: ADMIT Internal Medicine; ATTEND Internal Medicine
DX: K85.20 Alcohol induced acute pancreatitis without necrosis or infection (principal); K86.1 Other chronic pancreatitis; E87.1 Hypo-osmolality and hyponatremia; H10.029 Other mucopurulent conjunctivitis, unspecified eye; Z72.89 Other problems related to lifestyle
CPT/HCPCS: 96374; G0378; J1170; J1650; J2060; J2270